=== PATIENT | male | born 1965 | race African-American/Black ===

== ENCOUNTER 2017-08-22 11:03 | Emergency (ER) | payer MEDICAID, SELFPAY ==
[~2017-08-22] VITALS: Ht 182.9 cm; Wt 81.6 kg
[2017-08-22 13:23] VITALS: BP 129/82
[2017-08-22 13:45] VITALS: BP 129/82
--- NOTE | 2017-08-28 01:05 | Emergency Room Report ---
History of Present Illness General Chief Complaint: Alcohol Intoxication Source: Patient, EMS Present Illness HPI Patient was brought in by paramedics questionably inebriated in the street Initially patient was somewhat groggy and sleepy After further observation patient reports that he had drank more than usual alcohol Denies any headache denies any chest pain Patient was oriented and speaking clearly Denies any fall or trauma and was requesting to go home Allergies: Coded Allergies: No Known Allergies (Unverified , 08/22/17) Patient History Past Medical History: see triage record Pertinent Family History: none Reviewed Nursing Documentation: PMH: Agreed, PSxH: Agreed Nursing Documentation-PMH Past Medical History: No History, Except For Hx Hypertension: Yes Review of Systems All Other Systems: negative except mentioned in HPI Physical Exam Vital Signs Date Time Temp Pulse Resp B/P (MAP) Pulse Ox O2 Delivery O2 Flow Rate FiO2 08/22/17 11:00 98.4 74 14 126/77 100 Room Air Sp02 EP Interpretation: reviewed, normal General Appearance: no apparent distress - Initially somewhat slow to respond however after further observation patient has become more sober, oriented and speaking clearly, Head: normocephalic, atraumatic Eyes: bilateral eye PERRL, bilateral eye EOMI ENT: hearing grossly normal, normal pharynx, TMs + canals normal, uvula midline Neck: full range of motion, supple, no meningismus, no bony tend Respiratory: lungs clear, normal breath sounds, no rhonchi, no respiratory distress, no retraction, no accessory muscle use Cardiovascular #1: normal peripheral pulses, regular rate, rhythm, no edema, no gallop, no JVD, no murmur Gastrointestinal: normal bowel sounds, non tender, soft, no mass, no organomegaly, non-distended, no guarding, no hernia, no pulsatile mass, no rebound Musculoskeletal: normal inspection Neurologic: oriented x3, responsive, fundraising consultant III-XII nml as tested, motor strength/ tone normal, sensory intact Psychiatric: mood/affect normal Skin: normal color, no rash, warm/dry, palpation normal Lymphatic: normal inspection, no adenopathy Medical Decision Making Diagnostic Impression: Primary Impression: alcohol abuse ER Course After observation and sobering Patient is awake and alert speaking clearly ambulating appropriately does report to drinking alcohol earlier And at this time requesting to go. given the benign neurological exam Patient appears stable for close followup Last Vital Signs Date Time Temp Pulse Resp B/P (MAP) Pulse Ox O2 Delivery O2 Flow Rate FiO2 08/22/17 13:45 98.4 97 16 129/82 100 Room Air Status: improved Disposition: HOME, SELF-CARE Condition: Improved Referrals: [facility],REFERRING (PCP) Patient Instructions: Alcohol Use Disorder Additional Instructions: Patient is provided with the discharge instructions notified to follow up with primary doctor in the next 2-3 days otherwise return to the er with any worsening symptoms. Please note that this report is being documented using [employer] technology. This can lead to erroneous entry secondary to incorrect interpretation by the dictating instrument. MARILEE BOOTHE D.O. Aug 28, 2017 01:05
== END 2017-08-22 13:45 | disposition home or self-care (01) ==
LOC: EDBD 11:03 → EMR 11:40
DX: F10.10 Alcohol abuse, uncomplicated (principal); I10 Essential (primary) hypertension
CPT/HCPCS: 99283

== ENCOUNTER 2018-03-26 22:23 | Inpatient (IN) | payer MEDICAID ==
[~2018-03-26] VITALS: Ht 190.5 cm; Wt 110.2 kg
--- NOTE | 2018-03-26 22:37 | Emergency Room Report ---
History of Present Illness General Chief Complaint: Generalized Weakness Source: Patient, Medical Record, EMS Present Illness HPI This is a 52-year-old male with a history of alcohol abuse in the past. He denies having problem with alcohol. He presents with generalized weakness. Onset for 1 day. He also has abdominal pain has been going on for years. No fever chills but no nausea no vomiting. He felt shaky and weak. Increasing falling. 3 days ago, fell and hit his face on the floor. No loss of consciousness. Did not come in to be seen. Patient is a poor historian. Allergies: Coded Allergies: No Known Allergies (Unverified , 08/22/17) Patient History Past Medical History: see triage record, old chart reviewed Past Surgical History: other Pertinent Family History: none Social History: Reports: alcohol use Immunizations: other Reviewed Nursing Documentation: PMH: Agreed; PSxH: Agreed Nursing Documentation-PMH Hx Cardiac Problems: Yes - ENLARGED HEART Hx Hypertension: Yes Review of Systems Constitutional: Reports: weakness Eye: Denies: eye pain, blurred vision ENT: Denies: ear pain, nose congestion, throat swelling Respiratory: Denies: cough, shortness of breath Cardiovascular: Denies: chest pain, palpitations Gastrointestinal: Reports: abdominal pain; Denies: diarrhea, nausea, vomiting Musculoskeletal: Denies: back pain, joint pain Skin: Denies: rash Neurological: Denies: headache, numbness Endocrine: Denies: increased thirst, increased urine Hematologic/Lymphatic: Denies: easy bruising All Other Systems: negative except mentioned in HPI Physical Exam Vital Signs Date Time Temp Pulse Resp B/P (MAP) Pulse Ox O2 Delivery O2 Flow Rate FiO2 03/26/18 22:18 99.2 127 18 122/72 94 Room Air 99.1 vitals with tachycardia Sp02 EP Interpretation: reviewed, normal General Appearance: well appearing, no apparent distress, alert Head: normocephalic, atraumatic Eyes: left eye other - Left eye with periorbital ecchymosis and subconjunctival hemorrhage; bilateral eye PERRL, bilateral eye EOMI ENT: hearing grossly normal, normal pharynx, other - edema to left face Neck: full range of motion, supple, no meningismus Respiratory: chest non-tender, lungs clear, normal breath sounds Cardiovascular #1: regular rate, rhythm, no murmur Gastrointestinal: normal bowel sounds, non tender, no mass, no organomegaly, no bruit, non-distended Musculoskeletal: back normal, normal range of motion Neurologic: alert, oriented x3, other - left facial droop not involving forehead Psychiatric: mood/affect normal Skin: warm/dry Procedures Critical Care Time Critical Care Time Critical care is mandated in this patient who presented with weakness secondary to anemia, probably from upper GI bleed from alcoholic gastritis. he also showed evidence of alcohol withdrawal syndrome. Patient require my urgent intervention to attenuate the risks of metabolic collapse which may lead to cardiovascular collapse and . Critical care time is 35 minutes excluding any reportable procedure. Critical care time included evaluation, multiple reevaluation, looking at old charts, interpreting laboratory and diagnostic data , discussing case with patient and family and consultants, and charting. Medical Decision Making Diagnostic Impression: Primary Impression: Alcohol withdrawal Qualified Codes: F10.230 - Alcohol dependence with withdrawal, uncomplicated Additional Impressions: Anemia Qualified Codes: D64.9 - Anemia, unspecified GI bleed Qualified Codes: K92.2 - Gastrointestinal hemorrhage, unspecified Orbital wall fracture Qualified Codes: S02.80XA - Fracture of other specified skull and facial bones , unspecified side, initial encounter for closed fracture Orbital floor fracture Qualified Codes: S02.32XA - Fracture of orbital floor, left side, initial encounter for closed fracture NERIS (acute kidney injury) Alcohol abuse ER Course Patient presents with weakness and tremulous. His weakness is probably secondary to poor nutrition and alcohol abuse. With the low hemoglobin I suspect that he has an upper GI bleed from alcoholics gastritis. When I ask him if his stool been dark he said yes. No evidence of acute bleeding. No evidence of perforation. Blood transfusion ordered. No evidence of CVA. He does have an oral wall fracture resulting in swelling of his left side of his face. No evidence of subarachnoid or intracranial bleed. Vital signs have been stable. Patient is stable for transfer. I spoke with Dr. Echeverria at [facility]. He accepted the patient for transfer to [facility]. Laboratory Tests Test 03/26/18 22:40 White Blood Count 16.8 K/UL (4.8-10.8) H Red Blood Count 2.66 M/UL (4.70-6.10) L Hemoglobin 6.6 G/DL (14.2-18.0) *L Hematocrit 21.8 % (42.0-52.0) L Mean Corpuscular Volume 82 FL (80-99) Mean Corpuscular Hemoglobin 24.7 PG (27.0-31.0) L Mean Corpuscular Hemoglobin Concent 30.2 G/DL (32.0-36.0) L Red Cell Distribution Width 20.2 % (11.6-14.8) H Platelet Count 168 K/UL (150-450) Mean Platelet Volume 8.4 FL (6.5-10.1) Neutrophils (%) (Auto) % (45.0-75.0) Lymphocytes (%) (Auto) % (20.0-45.0) Monocytes (%) (Auto) % (1.0-10.0) Eosinophils (%) (Auto) % (0.0-3.0) Basophils (%) (Auto) % (0.0-2.0) Neutrophils % (Manual) Pending Lymphocytes % (Manual) Pending Platelet Estimate Pending Platelet Morphology Pending Prothrombin Time 10.7 SEC (9.30-11.50) Prothromb Time International Ratio 1.0 (0.9-1.1) Activated Partial Thromboplast Time 21 SEC (23-33) L Sodium Level 137 MMOL/L (136-145) Potassium Level 3.0 MMOL/L (3.5-5.1) L Chloride Level 95 MMOL/L (98-107) L Carbon Dioxide Level 28 MMOL/L (21-32) Anion Gap 14 mmol/L (5-15) Blood Urea Nitrogen 21 mg/dL (7-18) H Creatinine 2.6 MG/DL (0.55-1.30) H Estimat Glomerular Filtration Rate 31.4 mL/min (>60) Glucose Level 134 MG/DL (74-106) H Calcium Level 8.5 MG/DL (8.5-10.1) Total Bilirubin 0.6 MG/DL (0.2-1.0) Aspartate Amino Transf (AST/SGOT) 73 U/L (15-37) H Alanine Aminotransferase (ALT/SGPT) 50 U/L (12-78) Alkaline Phosphatase 55 U/L (46-116) Troponin I 0.000 ng/mL (0.000-0.056) Total Protein 8.5 G/DL (6.4-8.2) H Albumin 3.9 G/DL (3.4-5.0) Globulin 4.6 g/dL Albumin/Globulin Ratio 0.8 (1.0-2.7) L Serum Alcohol 5 mg/dL Lab Results Impression labs with anemia and renal failure EKG Diagnostic Results Rate: tachycardiac Rhythm: NSR ST Segments: no acute changes Rhythm Strip Diag. Results Rhythm Strip Time: 23:20 EP Interpretation: yes Rate: 110 Rhythm: NSR, no PVC's, no ectopy Chest X-Ray Diagnostic Results Chest X-Ray Diagnostic Results : Chest X-Ray Ordered: Yes # of Views/Limited/Complete: 1 View Indication: Shortness of Breath EP Interpretation: Yes Interpretation: no consolidation, no effusion, no pneumothorax, no acute cardiopulmonary disease Impression: No acute disease Electronically Signed by: Anselmo Langley MD CT/MRI/US Diagnostic Results CT/MRI/US Diagnostic Results #1: Imaging Test Ordered: CT head Impression read by radiologist. Atrophy. CT/MRI/US Diagnostic Results #2: Imaging Test Ordered: CT facial bones Impression Read by radiologist. Soft tissue edema in the left periorbital region. Fracture of the floor of the left orbit. Fracture of the medial wall of the left orbit. Last Vital Signs Date Time Temp Pulse Resp B/P (MAP) Pulse Ox O2 Delivery O2 Flow Rate FiO2 03/26/18 22:18 99.2 127 18 122/72 94 Room Air 99.1 Status: improved Disposition: XFER SHT-TRM HOSP Condition: Stable ANSELMO LANGLEY M.D. Mar 26, 2018 22:37
[2018-03-26] MEDS ORDERED: LORazepam Inj 2mg/ml 1ml IV ONE (22:45)
[2018-03-26 23:22] LABS: HEMATOCRIT 21.8 % (42.0-52.0); MEAN CORPUSCULAR VOLUME 82 FL (80-99); PLATELET COUNT 168 K/UL (150-450); RED BLOOD COUNT 2.66 M/UL (4.70-6.10); RED CELL DISTRIBUTION WIDTH 20.2 % (11.6-14.8); WHITE BLOOD COUNT 16.8 K/UL (4.8-10.8)
[2018-03-26 23:31] LABS: ANION GAP 14 mmol/L (5-15); BLOOD UREA NITROGEN 21 mg/dL (7-18); CALCIUM 8.5 MG/DL (8.5-10.1); CARBON DIOXIDE 28 MMOL/L (21-32); CHLORIDE 95 MMOL/L (98-107); CREATININE 2.6 MG/DL (0.55-1.30); SODIUM 137 MMOL/L (136-145)
[2018-03-26 23:35] LABS: HEMOGLOBIN 6.6 G/DL (14.2-18.0)
[2018-03-26 23:36] LABS: ALANINE AMINOTRANSFERASE 50 U/L (12-78); ALBUMIN 3.9 G/DL (3.4-5.0); ALBUMIN/GLOBULIN RATIO 0.8 (1.0-2.7); ALKALINE PHOSPHATASE 55 U/L (46-116); ASPARTATE AMINO TRANSFERASE 73 U/L (15-37); BILIRUBIN,TOTAL 0.6 MG/DL (0.2-1.0)
[2018-03-27] VITALS (10 sets, daily range): BP systolic 132–156; BP diastolic 72–98
[2018-03-27] MEDS ORDERED: Pantoprazole Inj IVP ONE
[2018-03-27] MEDS ORDERED: LORazepam 1mg tab ORAL PRN (05:00)
[2018-03-27] MEDS: D5NS 1,000 ML IV SCH ×2 (06:00→16:30)
[2018-03-27] MEDS ORDERED: Thiamine 100mg tab ORAL SCH (09:00)
[2018-03-27 09:41] LABS: HEMATOCRIT 23.6 % (42.0-52.0); HEMOGLOBIN 7.4 G/DL (14.2-18.0); MEAN CORPUSCULAR VOLUME 83 FL (80-99); PLATELET COUNT 144 K/UL (150-450); RED BLOOD COUNT 2.86 M/UL (4.70-6.10); RED CELL DISTRIBUTION WIDTH 18.5 % (11.6-14.8); WHITE BLOOD COUNT 10.8 K/UL (4.8-10.8)
[2018-03-27 09:46] LABS: ANION GAP 14 mmol/L (5-15); BLOOD UREA NITROGEN 19 mg/dL (7-18); CALCIUM 7.7 MG/DL (8.5-10.1); CARBON DIOXIDE 28 MMOL/L (21-32); CHLORIDE 96 MMOL/L (98-107); CREATININE 1.2 MG/DL (0.55-1.30); POTASSIUM 3.1 MMOL/L (3.5-5.1); SODIUM 137 MMOL/L (136-145)
--- NOTE | 2018-03-27 09:54 | Anethesia Preoperative Eval ---
Anesthesia Pre-op PMH/ROS General Date of Evaluation: Mar 27, 2018 Anesthesiologist: Clive ASA Score: ASA 3 Mallampati Score Class I : Soft palate, uvula, fauces, pillars visible Class II: Soft palate, uvula, fauces visible Class III: Soft palate, base of uvula visible Class IV: Only hard plate visible Mallampati Classification: Class III Surgeon: Michael Diagnosis: GI bleed Surgical Procedure: EGD Anesthesia History: none Social History: alcohol use - abuse Family History: no anesthesia problems Allergies: Coded Allergies: No Known Allergies (Unverified , 08/22/17) Medications: see eMAR Past Medical History Cardiovascular: Reports: HTN, other - CHF, cardiomegaly; Denies: CAD, DE, valve dz, arrhythmia Pulmonary: Denies: asthma, COPD, FIDE, other Gastrointestinal/Genitourinary: Reports: GERD, other - ? cirrhosis; Denies: CRI, ESRD Neurologic/Psychiatric: Denies: dementia, CVA, depression/anxiety, TIA, other Endocrine: Denies: DM, hypothyroidism, steroids, other HEENT: Denies: cataract (L), cataract (R), glaucoma, SQUAXIN (L), SQUAXIN (R), other Hematology/Immune: Reports: anemia; Denies: DVT, bleeding disorder, other Musculoskeletal/Integumentary: Reports: other - orbital fx; Denies: OA, RA, DJD, DDD, edema Other: obesity PSxH Narrative: denies Anesthesia Pre-op Phys. Exam Physician Exam Last Vital Signs Date Time Temp Pulse Resp B/P (MAP) Pulse Ox O2 Delivery O2 Flow Rate FiO2 03/27/18 08:00 99.2 83 17 146/85 98 Room Air 99.2 Constitutional: NAD, other - Swollen left orbit Cardiovascular: RRR Respiratory: CTA Airway Exam Mallampati Score: Class III MO: limited ROM: limited Anesthesia Pre-op A/P Labs Hematology Test 03/26/18 22:40 03/27/18 09:10 White Blood Count 16.8 K/UL (4.8-10.8) H 10.8 K/UL (4.8-10.8) Red Blood Count 2.66 M/UL (4.70-6.10) L 2.86 M/UL (4.70-6.10) L Hemoglobin 6.6 G/DL (14.2-18.0) *L 7.4 G/DL (14.2-18.0) L Hematocrit 21.8 % (42.0-52.0) L 23.6 % (42.0-52.0) L Mean Corpuscular Volume 82 FL (80-99) 83 FL (80-99) Mean Corpuscular Hemoglobin 24.7 PG (27.0-31.0) L 25.9 PG (27.0-31.0) L Mean Corpuscular Hemoglobin Concent 30.2 G/DL (32.0-36.0) L 31.2 G/DL (32.0-36.0) L Red Cell Distribution Width 20.2 % (11.6-14.8) H 18.5 % (11.6-14.8) H Platelet Count 168 K/UL (150-450) 144 K/UL (150-450) L Mean Platelet Volume 8.4 FL (6.5-10.1) 8.0 FL (6.5-10.1) Neutrophils (%) (Auto) % (45.0-75.0) % (45.0-75.0) Lymphocytes (%) (Auto) % (20.0-45.0) % (20.0-45.0) Monocytes (%) (Auto) % (1.0-10.0) % (1.0-10.0) Eosinophils (%) (Auto) % (0.0-3.0) % (0.0-3.0) Basophils (%) (Auto) % (0.0-2.0) % (0.0-2.0) Differential Total Cells Counted 100 Neutrophils % (Manual) 80 % (45-75) H Pending Lymphocytes % (Manual) 8 % (20-45) L Pending Monocytes % (Manual) 12 % (1-10) H Eosinophils % (Manual) 0 % (0-3) Basophils % (Manual) 0 % (0-2) Band Neutrophils 0 % (0-8) Platelet Estimate Adequate Pending Platelet Morphology Pending Giant Platelets Stomatocytes 3+ Coagulation Test 03/26/18 22:40 Prothrombin Time 10.7 SEC (9.30-11.50) Prothromb Time International Ratio 1.0 (0.9-1.1) Activated Partial Thromboplast Time 21 SEC (23-33) L Chemistry Test 03/26/18 22:40 03/27/18 09:10 Sodium Level 137 MMOL/L (136-145) Pending Potassium Level 3.0 MMOL/L (3.5-5.1) L Pending Chloride Level 95 MMOL/L (98-107) L Pending Carbon Dioxide Level 28 MMOL/L (21-32) Pending Anion Gap 14 mmol/L (5-15) Blood Urea Nitrogen 21 mg/dL (7-18) H Pending Creatinine 2.6 MG/DL (0.55-1.30) H Pending Estimat Glomerular Filtration Rate 31.4 mL/min (>60) Pending Glucose Level 134 MG/DL (74-106) H Pending Calcium Level 8.5 MG/DL (8.5-10.1) Pending Total Bilirubin 0.6 MG/DL (0.2-1.0) Aspartate Amino Transf (AST/SGOT) 73 U/L (15-37) H Alanine Aminotransferase (ALT/SGPT) 50 U/L (12-78) Alkaline Phosphatase 55 U/L (46-116) Troponin I 0.000 ng/mL (0.000-0.056) Total Protein 8.5 G/DL (6.4-8.2) H Albumin 3.9 G/DL (3.4-5.0) Globulin 4.6 g/dL Albumin/Globulin Ratio 0.8 (1.0-2.7) L Studies Pre-op Studies: EKG - ST Risk Assessment & Plan Assessment: ASA III Plan: MAC Status Change Before Surgery: No Pre-Antibiotics Drug: N/A JOÃO WARNER M.D. Mar 27, 2018 09:54
--- NOTE | 2018-03-27 09:56 | GI Initial Consult Note ---
History of Present Illness General Date patient seen: Mar 27, 2018 Time patient seen: 09:52 Reason for Hospitalization: Generalized Weakness Referring physician: DODSON Reason for Consultation: ANEMIA Present Illness HPI This is a 52-year-old male with a history of alcohol abuse in the past. He denies having problem with alcohol. He presents with generalized weakness. Onset for 1 day. He also has abdominal pain has been going on for years. No fever chills but no nausea no vomiting. He felt shaky and weak. Increasing falling. 3 days ago, fell and hit his face on the floor. No loss of consciousness. Did not come in to be seen. Patient is a poor historian. GI consulted for anemia. Pt seen, awake A&Ox4 NAD with no active s/sx of N/V/D , noted with some tremors. Pt states he has history of heavy drinking, contributes it to the recent loss of his family members. Stated he had episodes of dark red blood emesis. No history of endoscopy/colonoscopy. Presents today with leukocytosis and severe anemia requiring blood transfusion. Allergies: Coded Allergies: No Known Allergies (Unverified , 08/22/17) Patient History PMH Narrative Past Medical History: see triage record, old chart reviewed Past Surgical History: other Pertinent Family History: none Social History: Reports: alcohol use Immunizations: other Reviewed Nursing Documentation: PMH: Agreed; PSxH: Agreed Nursing Documentation-PMH Hx Cardiac Problems: Yes - ENLARGED HEART Hx Hypertension: Yes Social History: Reports: alcohol use Review of Systems All Other Systems: negative except mentioned in HPI Physical Exam Vital Signs Date Time Temp Pulse Resp B/P (MAP) Pulse Ox O2 Delivery O2 Flow Rate FiO2 03/26/18 22:18 99.2 127 18 122/72 94 Room Air 99.1 Sp02 EP Interpretation: reviewed, normal Labs Laboratory Tests Test 03/26/18 22:40 03/27/18 09:09 03/27/18 09:10 White Blood Count 16.8 K/UL (4.8-10.8) H 10.8 K/UL (4.8-10.8) Red Blood Count 2.66 M/UL (4.70-6.10) L 2.86 M/UL (4.70-6.10) L Hemoglobin 6.6 G/DL (14.2-18.0) *L 7.4 G/DL (14.2-18.0) L Hematocrit 21.8 % (42.0-52.0) L 23.6 % (42.0-52.0) L Mean Corpuscular Volume 82 FL (80-99) 83 FL (80-99) Mean Corpuscular Hemoglobin 24.7 PG (27.0-31.0) L 25.9 PG (27.0-31.0) L Mean Corpuscular Hemoglobin Concent 30.2 G/DL (32.0-36.0) L 31.2 G/DL (32.0-36.0) L Red Cell Distribution Width 20.2 % (11.6-14.8) H 18.5 % (11.6-14.8) H Platelet Count 168 K/UL (150-450) 144 K/UL (150-450) L Mean Platelet Volume 8.4 FL (6.5-10.1) 8.0 FL (6.5-10.1) Neutrophils (%) (Auto) % (45.0-75.0) % (45.0-75.0) Lymphocytes (%) (Auto) % (20.0-45.0) % (20.0-45.0) Monocytes (%) (Auto) % (1.0-10.0) % (1.0-10.0) Eosinophils (%) (Auto) % (0.0-3.0) % (0.0-3.0) Basophils (%) (Auto) % (0.0-2.0) % (0.0-2.0) Differential Total Cells Counted 100 Neutrophils % (Manual) 80 % (45-75) H Pending Lymphocytes % (Manual) 8 % (20-45) L Pending Monocytes % (Manual) 12 % (1-10) H Eosinophils % (Manual) 0 % (0-3) Basophils % (Manual) 0 % (0-2) Band Neutrophils 0 % (0-8) Platelet Estimate Adequate Pending Platelet Morphology Pending Giant Platelets Stomatocytes 3+ Prothrombin Time 10.7 SEC (9.30-11.50) Prothromb Time International Ratio 1.0 (0.9-1.1) Activated Partial Thromboplast Time 21 SEC (23-33) L Sodium Level 137 MMOL/L (136-145) Pending Potassium Level 3.0 MMOL/L (3.5-5.1) L Pending Chloride Level 95 MMOL/L (98-107) L Pending Carbon Dioxide Level 28 MMOL/L (21-32) Pending Anion Gap 14 mmol/L (5-15) Blood Urea Nitrogen 21 mg/dL (7-18) H Pending Creatinine 2.6 MG/DL (0.55-1.30) H Pending Estimat Glomerular Filtration Rate 31.4 mL/min (>60) Pending Glucose Level 134 MG/DL (74-106) H Pending Calcium Level 8.5 MG/DL (8.5-10.1) Pending Total Bilirubin 0.6 MG/DL (0.2-1.0) Aspartate Amino Transf (AST/SGOT) 73 U/L (15-37) H Alanine Aminotransferase (ALT/SGPT) 50 U/L (12-78) Alkaline Phosphatase 55 U/L (46-116) Troponin I 0.000 ng/mL (0.000-0.056) Total Protein 8.5 G/DL (6.4-8.2) H Albumin 3.9 G/DL (3.4-5.0) Globulin 4.6 g/dL Albumin/Globulin Ratio 0.8 (1.0-2.7) L Serum Alcohol 5 mg/dL Urine Opiates Screen Pending Urine Barbiturates Screen Pending Phencyclidine (PCP) Screen Pending Urine Amphetamines Screen Pending Urine Benzodiazepines Screen Pending Urine Cocaine Screen Pending Urine Marijuana (THC) Screen Pending General Appearance: well appearing, no apparent distress, alert Head: normocephalic EENT: PERRL/EOMI, normal ENT inspection Neck: supple Respiratory: normal breath sounds, no respiratory distress Cardiovascular: normal rate Gastrointestinal: normal inspection, non tender, soft, normal bowel sounds, non -distended Rectal: deferred Genitourinary: deferred Musculoskeletal: normal inspection, back normal Neurologic: normal inspection, alert, oriented x3, responsive Psychiatric: normal inspection, judgement/insight normal, memory normal Skin: normal inspection, normal color, no rash, warm/dry, palpation normal, well hydrated Lymphatic: normal inspection, no adenopathy Current Medications Current Medications Medications (Trade) Dose Ordered Sig/Zenobia Route PRN Reason Start Time Stop Time Status Last Admin Dose Admin Amlodipine Besylate (Norvasc) 10 mg DAILY ORAL 03/27/18 10:00 04/26/18 09:59 Clonidine HCl (Catapres Tab) 0.1 mg Q6H PRN ORAL SBP >155 03/27/18 10:00 04/26/18 09:59 Dextrose (Dextrose 50%) 25 ml STAT PRN IV Hypoglycemia 03/27/18 05:00 04/26/18 04:59 Dextrose (Dextrose 50%) 50 ml STAT PRN IV Hypoglycemia 03/27/18 05:00 04/26/18 04:59 Dextrose/Sodium Chloride 1,000 ml @ 100 mls/hr Q10H IV 03/27/18 06:00 04/26/18 05:59 03/27/18 06:00 Folic Acid (Folate) 1 mg DAILY ORAL 03/27/18 09:00 04/26/18 08:59 03/27/18 09:05 Lorazepam (Ativan) 1 mg Q4H PRN ORAL For Anxiety 03/27/18 05:00 04/03/18 04:59 Morphine Sulfate (Morphine Sulfate) 1 mg Q4H PRN IVP For Pain 03/27/18 10:00 04/03/18 09:59 Ondansetron HCl (Zofran) 4 mg Q6H PRN IVP Nausea & Vomiting 03/27/18 05:00 04/26/18 04:59 Thiamine HCl (Vitamin B1) 100 mg DAILY ORAL 03/27/18 09:00 04/26/18 08:59 03/27/18 09:05 GI: Plan Problems: (1) GI bleed (2) Alcohol withdrawal (3) Anemia (4) Alcohol abuse (5) Acute alcoholic intoxication Plan s/p blood transfusion EGD today >> maintain NPO + IVFs will adv diet after surgery MVI/folate ativan prn pain mgmt will follow with additional recs Discussed with Dr. Rodriguez. Thank you for this patient referral, we will follow. The patient was seen and examined at bedside and all new and available data was reviewed in the patients chart. I agree with the above findings, impression and plan. (Patient seen earlier today. Signature stamp does not reflect patient encounter time.). - MD Korin Sweet,[facility] [employer] Mar 27, 2018 09:56
--- NOTE | 2018-03-27 09:59 | Diagnostic Imaging Report ---
Indications: Head trauma approximately 5 hours ago, it orbit Technique: Spiral acquisitions obtained through the brain. Angled axial and coronal 5 x 5 mm slices were reconstructed. Total dose length product 1288.11 mGycm. CTDI vol(s) 70.38 mGy. Dose reduction achieved using automated exposure control Comparison: None. Findings: No acute intracranial hemorrhage or edema, mass effect, nor midline shift. There is mild anterior convexity cortical volume loss. Normal size ventricles and extra axial CSF spaces. Normal daugherty-white differentiation. Intact calvarium. There is ethmoid sinus disease on the left, maxillary sinus disease on the right. The mastoids are clear. Impression: Negative for acute intracranial bleed or mass effect Age-related cerebral cortical volume loss This agrees with the preliminary interpretation provided overnight by [facility] teleradiology service. The CT scanner at [facility] is accredited by the [employer] and the scans are performed using protocols designed to limit radiation exposure to as low as reasonably achievable to attain images of sufficient resolution adequate for diagnostic evaluation.
[2018-03-27] MEDS ORDERED: Morphine Sulfate 2mg/ml Inj IVP PRN (10:00)
[2018-03-27] MEDS ORDERED: ANTIFUNGAL30 G2 (10:43)
[2018-03-27] MEDS ORDERED: DICLOFENAC SODI75 MG PO (10:43)
[2018-03-27] MEDS ORDERED: VITAMIN D250000 UNI1 PO (10:43)
[2018-03-27] MEDS ORDERED: GABAPENTIN600 MG PO (10:43)
--- NOTE | 2018-03-27 12:14 | Diagnostic Imaging Report ---
Indication: Shortness of breath Technique: One view of the chest Comparison: none Findings: Lungs and pleural spaces are clear. Heart size is normal Impression: No acute process
--- NOTE | 2018-03-27 12:17 | Diagnostic Imaging Report ---
Indications: Trauma, fell proximally 5 hours ago, hit left orbit Technique: Spiral images obtained through the facial bones. No IV contrast utilized. Multiplanar reconstructions were generated.Total dose length product 651.23 mGycm. CTDIvol(s) 28.19 mGy. Dose reduction achieved using automated exposure control Comparison: none Findings: There is a fracture of the left orbital floor, which is depressed by about 4 mm. No susana herniation of orbital contents demonstrated. Fracture also extends into the medial orbital wall, which is slightly markedly depressed. There is a small air-fluid level within the left maxillary sinus. There is opacification of left ethmoid air cells. There is left periorbital soft tissue swelling/contusion in left malar soft tissue swelling/contusion There is also chronic appearing maxillary mucosal disease bilaterally. The optic globes are intact. Impression: Positive for left inferior orbital floor fracture, depressed by 4 mm. No evidence of herniation of orbital contents Positive for depressed medial orbital wall fracture Sinus opacification, in part related to the above, in part chronic Left periorbital soft tissue contusion Intact optic globe This agrees with the preliminary interpretation provided overnight by [facility]erad[facility] service. The CT scanner at [facility] is accredited by the [employer] and the scans are performed using protocols designed to limit radiation exposure to as low as reasonably achievable to attain images of sufficient resolution adequate for diagnostic evaluation.
[2018-03-27] MEDS ORDERED: DICLOFENAC SODI50 MG ORAL (12:33)
[2018-03-27] MEDS ORDERED: BACITRACIN15 GM TOPIC (12:43)
[2018-03-27] MEDS ORDERED: ADALAT20 MG ORAL (12:43)
[2018-03-27] MEDS ORDERED: VITAMIN D250000 UNI1 ORAL (12:43)
[2018-03-27] MEDS ORDERED: NYSTATIN15 GM TOPIC (12:43)
[2018-03-27] MEDS ORDERED: FERROUS SULFAT325 M2 ORAL (12:43)
[2018-03-27] MEDS ORDERED: K-TAB ER20 MEQ PO (12:43)
[2018-03-27] MEDS ORDERED: FUROSEMIDE20 M1 ORAL (12:43)
[2018-03-27] MEDS ORDERED: GABAPENTIN600 MG ORAL (12:43)
[2018-03-27] MEDS ORDERED: Lidocaine 1% MPF 10mg/ml 5ml ONE (13:00)
[2018-03-27] MEDS ORDERED: Propofol 200mg/20ml IV ONE (13:00)
[2018-03-27] MEDS ORDERED: Midazolam 2mg/2ml Inj ONE ×2 (13:00→13:22)
[2018-03-27] MEDS ORDERED: LR 1000ml ONE (13:00)
--- NOTE | 2018-03-27 13:04 | Pre-Procedure Note/Attestation ---
Pre-Procedure Note/Attestation Complete Prior to Procedure Planned Procedure: not applicable Procedure Narrative: egd Indications for Procedure Pre-Operative Diagnosis: gib Attestation I attest that I discussed the nature of the procedure; its benefits; risks and complications; and alternatives (and the risks and benefits of such alternatives ), prior to the procedure, with the patient (or the patient's legal canvas products sales representative). I attest that, if there was a reasonable possibility of needing a blood transfusion, the patient (or the patient's legal [employer] products sales representative) was given the [facility] standardized written summary, pursuant to the Efraín Gwendolyn Blood Safety Act ([place] Health and Safety Code # 1645, as amended). I attest that I re-evaluated the patient just prior to the surgery and that there has been no change in the patient's H&P, except as documented below: Joshua Rodriguez MD Mar 27, 2018 13:04
[2018-03-27] MEDS ORDERED: NS 500ML IVPB ONE (13:05)
--- NOTE | 2018-03-27 13:17 | Endoscopy Procedure Note ---
Endoscopy Procedure Note General Indication for Procedure: gib Procedures Performed: EGD Operative Findings/Diagnosis: gastritis Specimen: yes Pt Tolerated Procedure Well: Yes Estimated Blood Loss: none Anesthesia Anesthesiologist: josse Anesthesia: MAC Inserted Devices Implant(s) used?: No GI Core Measures 50 yrs or older w/o bx or poly: Not Applicable 10yrs. F/U not recommended: Not Applicable Joshua Rodriguez MD Mar 27, 2018 13:17
--- NOTE | 2018-03-27 13:27 | Immediate Post-Op Evaluation ---
Immediate Post-Op Evalulation Immediate Post-Op Evalulation Procedure: EGD Date of Evaluation: Mar 27, 2018 Time of Evaluation: 13:29 IV Fluids: 300 Blood Products: 0 Estimated Blood Loss: 0 Urinary Output: 0 Blood Pressure Systolic: 138 Blood Pressure Diastolic: 82 Pulse Rate: 100 Respiratory Rate: 17 O2 Sat by Pulse Oximetry: 100 Temperature (Fahrenheit): 99.1 Pain Score (1-10): 0 Nausea: No Vomiting: No Complications 0 Patient Status: awake, reacts, patent, none Hydration Status: adequate Drug: N/A JOÃO WARNER M.D. Mar 27, 2018 13:27
--- NOTE | 2018-03-27 13:28 | 48 Hour Post Anesthesia Eval ---
Post Anesthesia Evaluation Procedure: EGD Date of Evaluation: Mar 27, 2018 Airway: patent Nausea: No Vomiting: No Pain Intensity: 0 Hydration Status: adequate Cardiopulmonary Status: at baseline Mental Status/LOC: patient returned to baseline Post-Anesthesia Complications: 0 Follow-up care needed: ready to discharge JOÃO WARNER M.D. Mar 27, 2018 13:28
[2018-03-27] MEDS ORDERED: LR 1000ml 1,000 ML IVLG SCH (13:29)
[2018-03-27] MEDS ORDERED: Midazolam 2mg/2ml Inj IVP PRN (13:30)
[2018-03-27] MEDS ORDERED: LORazepam Inj 2mg/ml 1ml IV PRN (13:30)
[2018-03-27] MEDS ORDERED: DiphenhydrAMINE 50mg/ml Inj IVP PRN (13:30)
--- NOTE | 2018-03-27 15:15 | General Progress Note ---
Assessment/Plan Status: stable Assessment/Plan 1. Orbital fracture-left eye with movement of eyes in all directions. Injury was March 16, 2018 per pt-he is not candidate for repair at this time- denies 2x vision or blurry vision.. may change with time as swelling goes down. Please reconsult PRN 2. Suggest ophthalmology to test vision. Subjective Date patient seen: Mar 27, 2018 Time patient seen: 15:00 ROS Limited/Unobtainable: Yes Constitutional: Reports: diaphoresis HEENT: Reports: other - left facial swelling around eye which was injured March 16, 2018. he dienies vision issues Cardiovascular: Reports: other - HTN Gastrointestinal/Abdominal: Reports: other - gastritis Neurologic/Psychiatric: Reports: anxiety, depressed, emotional problems, other - ETOH abuse Allergies: Coded Allergies: No Known Allergies (Unverified , 08/22/17) Subjective Left eye ecchmosis as described in ROR above. Objective Last 24 Hour Vital Signs Date Time Temp Pulse Resp B/P (MAP) Pulse Ox O2 Delivery O2 Flow Rate FiO2 03/27/18 13:45 99 104 17 132/72 100 Room Air 99.0 03/27/18 13:34 99 101 17 138/80 100 Room Air 99.0 03/27/18 13:29 99 100 17 138/84 100 Room Air 99.0 03/27/18 13:27 210.4 100 17 100 03/27/18 13:24 99 100 17 138/86 100 Simple Mask 5 99.0 03/27/18 12:00 98.6 89 18 150/84 97 Room Air 98.6 03/27/18 12:00 88 03/27/18 10:45 89 146/85 03/27/18 08:00 99.2 83 17 146/85 98 Room Air 99.2 03/27/18 08:00 89 03/27/18 06:09 99.3 90 142/89 96 99.3 03/27/18 04:27 98.9 97 20 144/92 99 Room Air 98.9 03/27/18 03:12 98.9 88 20 98.9 03/27/18 03:11 98.9 97 20 156/94 99 Room Air 98.9 03/27/18 00:00 98.9 98 20 142/98 99 Room Air 98.9 03/26/18 22:18 99.2 127 18 122/72 94 Room Air 99.1 Intake and Output 03/26/18 03/27/18 19:00 07:00 Intake Total 500 ml Output Total 300 ml Balance 200 ml Intake Oral 0 ml Blood Product 500 ml Output Urine Total 300 ml # Bowel Movements 1 Laboratory Tests 03/26/18 22:40: White Blood Count 16.8H, Red Blood Count 2.66L, Hemoglobin 6.6*L, Hematocrit 21.8L, Mean Corpuscular Volume 82, Mean Corpuscular Hemoglobin 24.7L, Mean Corpuscular Hemoglobin Concent 30.2L, Red Cell Distribution Width 20.2H, Platelet Count 168, Mean Platelet Volume 8.4, Neutrophils (%) (Auto) , Lymphocytes (%) (Auto) , Monocytes (%) (Auto) , Eosinophils (%) (Auto) , Basophils (%) (Auto) , Differential Total Cells Counted 100, Neutrophils % ( Manual) 80H, Lymphocytes % (Manual) 8L, Monocytes % (Manual) 12H, Eosinophils % (Manual) 0, Basophils % (Manual) 0, Band Neutrophils 0, Platelet Estimate Adequate, Platelet Morphology , Giant Platelets , Stomatocytes 3+, Prothrombin Time 10.7, Prothromb Time International Ratio 1.0, Activated Partial Thromboplast Time 21L, Sodium Level 137, Potassium Level 3.0L, Chloride Level 95L, Carbon Dioxide Level 28, Anion Gap 14, Blood Urea Nitrogen 21H, Creatinine 2.6H, Estimat Glomerular Filtration Rate 31.4, Glucose Level 134H, Calcium Level 8.5, Total Bilirubin 0.6, Aspartate Amino Transf (AST/SGOT) 73H, Alanine Aminotransferase (ALT/SGPT) 50, Alkaline Phosphatase 55, Troponin I 0.000, Total Protein 8.5H, Albumin 3.9, Globulin 4.6, Albumin/Globulin Ratio 0.8L, Serum Alcohol 5 03/27/18 09:09: Urine Opiates Screen Negative, Urine Barbiturates Screen Negative, Phencyclidine (PCP) Screen Negative, Urine Amphetamines Screen Negative, Urine Benzodiazepines Screen Negative, Urine Cocaine Screen Negative, Urine Marijuana (THC) Screen Negative 03/27/18 09:10: White Blood Count 10.8, Red Blood Count 2.86L, Hemoglobin 7.4L, Hematocrit 23.6L , Mean Corpuscular Volume 83, Mean Corpuscular Hemoglobin 25.9L, Mean Corpuscular Hemoglobin Concent 31.2L, Red Cell Distribution Width 18.5H, Platelet Count 144L, Mean Platelet Volume 8.0, Neutrophils (%) (Auto) , Lymphocytes (%) (Auto) , Monocytes (%) (Auto) , Eosinophils (%) (Auto) , Basophils (%) (Auto) , Differential Total Cells Counted 100, Neutrophils % ( Manual) 78H, Lymphocytes % (Manual) 14L, Monocytes % (Manual) 8, Eosinophils % ( Manual) 0, Basophils % (Manual) 0, Band Neutrophils 0, Platelet Estimate DecreasedL, Platelet Morphology Normal, Stomatocytes 1+, Sodium Level 137, Potassium Level 3.1L, Chloride Level 96L, Carbon Dioxide Level 28, Anion Gap 14 , Blood Urea Nitrogen 19H, Creatinine 1.2#, Estimat Glomerular Filtration Rate > 60, Glucose Level 99, Calcium Level 7.7L, Hypochromasia 1+, Anisocytosis 1+ Height (Feet): 6 Height (Inches): 3.00 Weight (Pounds): 243 General Appearance: confused, mild distress EENT: other - some swelling left periorbital area. EOMI and eyelids do close. Neck: non-tender Lymphatic: normal anterior cervical (L), normal anterior cervical (R), normal posterior cervical (L), normal posterior cervical (R), normal submandibular (L) , normal submandibular (R), normal supraclavicular (L), normal supraclavicular ( R) Objective Jez eye-periorbital swelling as described above. CT scan-let orbital floor fracture with periorbital edema KAYLA HARDY Mar 27, 2018 15:15
--- NOTE | 2018-03-27 16:30 | Procedure Note ---
DATE OF PROCEDURE: 03/27/2018 SURGEON: Joshua Rodriguez M.D. ANESTHESIA: Per Dr. Duffy. REFERRING PHYSICIAN: Get Mcdaniels M.D. PROCEDURE: Upper endoscopy with biopsy. INDICATION: Upper GI bleeding. The procedure, risks, benefits, and possible consequences, including hemorrhage, aspiration, perforation and infection, and alternative treatments, were explained to the patient/legal guardian by Dr. Joshua Rodriguez and the patient/legal guardian understood and accepted these risks. DESCRIPTION OF PROCEDURE: After informed consent was obtained and the patient was adequately sedated, Olympus upper endoscope was advanced from mouth into the second portion of the duodenum and retroflexion was performed in the stomach. The patient has evidence of distal esophagitis grade 1/II. No obvious active bleeding at this time. no gastric varices. In the stomach, there was diffuse gastritis. Random biopsy from antrum was obtained to rule out H. pylori infection. The patient tolerated the procedure very well without any complication. SUMMARY OF FINDINGS: 1. Gastritis. 2. Esophagitis. RECOMMENDATIONS: Follow up biopsies and treat accordingly. PPI daily. Reflux measures. Monitor for alcohol withdrawal. I want to thank Dr. De Jesus for this kind referral. Joshua Rodriguez M.D. DR: RENETTA JOB#: [id number] CC: Get Mcdaniels M.D.
--- NOTE | 2018-03-27 17:15 | History and Physical Report ---
DATE OF ADMISSION: 03/27/2018 REASON FOR ADMISSION: 1. GI bleed. 2. Anemia. 3. Status post fall with facial trauma. HISTORY OF PRESENT ILLNESS: The patient is a 52-year-old with polysubstance abuse consisting of dependency on alcohol and marijuana and pain medication. The patient drinks what he notes to be 3 to 4 drinks every day. On Friday, the patient was intoxicated, tripped and fell and hit the side of what seems to be a table or chairs. The patient's left eye started to swell immediately overnight into the next day. He did not present to the emergency room until early this morning at the persistence of his family. He does have a fracture of his orbital floor on the left side. The patient denies any nausea, vomiting, or diarrhea. He has been told in the past that his renal function is not normal. Complaining also of left-sided rib pain. PAST MEDICAL HISTORY: 1. Chronic kidney disease stage 3/4. 2. Hypertension. 3. Chronic pain. PAST SURGICAL HISTORY: Noncontributory. ALLERGIES: No known drug allergies. SOCIAL HISTORY: Positive for polysubstance abuse, alcohol and marijuana and narcotic pills. The patient denies illicit drug use. FAMILY HISTORY: Positive for hypertension. REVIEW OF SYSTEMS: NEUROLOGIC: The patient denies any current headaches. Some difficulty in vision through left side. Face is swollen. CARDIOVASCULAR: No current chest pain or palpitations. PULMONARY: No difficulty breathing. No cough or sputum. GASTROINTESTINAL/GENITOURINARY: No change in urinary or bowel habits. No nausea, vomiting or diarrhea. ENDOCRINOLOGY: No night sweats, fevers, or chills. PHYSICAL EXAMINATION: GENERAL: The patient awake, alert, in no other distress. VITAL SIGNS: Blood pressure 146/85, pulse 83, 98% room oxygen saturation, and temperature 99.2 degrees. HEENT: Extraocular muscles seemingly intact. Difficult to visualize left side, as his left-sided orbit is swollen. CARDIOVASCULAR: S1 and S2. No rubs or gallops. PULMONARY: Clear to auscultation bilaterally. No rales, rhonchi or wheezes. ABDOMEN: Nondistended and nontender. EXTREMITIES: No edema noted. LABORATORY AND DIAGNOSTIC DATA: Labs dated 03/26/2018, serum alcohol level of 5. Sodium 137, potassium 3, BUN 21, and creatinine 2.6. ALT and AST 50 and 73 respectively. Troponin 0. Hemoglobin 6.6, white cell count 16.8, and platelet count 168. ASSESSMENT AND PLAN: 1. Anemia. Hemoglobin 6.6. The patient was transfused in the emergency room. We will consult GI for further evaluation, management, most likely secondary to possible upper GI bleed. The patient does have heavy alcohol consumption, could have suppressed bone marrow from severe alcohol consumption. 2. Left orbital fracture. We will consult ENT for further evaluation and management. 3. CKD stage 4, creatinine 2.6. Continue IV hydration. We will monitor renal function carefully. Renal ultrasound to evaluate possibility of any underlying obstructive uropathy. 4. Hypokalemia. At this time, we will recheck stat laboratories. 5. DVT prophylaxis with heparin subcutaneous. 6. Alcohol dependency. The patient has been placed on thiamine and folate to avoid Wernicke's-Korsakoff's and also as p.r.n. Ativan. 7. Narcotic dependence. The patient is already requesting narcotics for generalized aches and pains. At this time, we will hold off any narcotics. We will need to do a stat drug screen. Get Mcdaniels MD DR: GALO JOB#: [id number] CC:
[2018-03-27] MEDS ORDERED: NS 275ml ONE (19:04)
[2018-03-27] MEDS ORDERED: Tubing IV Blood Pump IV ONE (19:04)
[2018-03-27] MEDS ORDERED: Pantoprazole Inj IVP SCH (21:00)
--- NOTE | 2018-03-28 12:14 | Cardiology Report ---
APPROVED REPORT EKG Measurement Heart [id number] Sinus tachycardia Left ventricular hypertrophy with repolarization abnormality Prolonged QT Abnormal ECG
--- NOTE | 2018-03-30 13:45 | Discharge Summary ---
Discharge Summary Discharge Summary _ DATE OF ADMISSION: 03/27/2018 DATE OF DISCHARGE: 03/27/2018. Patient signed AGAINST MEDICAL ADVICE REASON FOR ADMISSION: 51 years old male with history of polysubstance abuse, chronic kidney disease, hypertension, presented to emergency room for evaluation. Patient with known history of polysubstance abuse , consisting of alcohol dependency, marijuana use and dependence on narcotics. Patient was intoxicated on Friday, March 16 , tripped and fell. Left eye started to swell immediately overnight on the next day. Patient did not go to emergency room until 03/26. CT of the head revealed no acute intracranial pathology . CT of the facial bones revealed left inferior orbital floor fracture, depressed by 4 mm ,no evidence of herniation of orbital contents. Depressed medial orbital wall fracture. Chest x-ray revealed no acute cardiopulmonary pathology. Laboratory workup revealed WBC 16.8. Hemoglobin 6.6, hematocrit 21.8. BUN 21, creatinine 2.6. Troponin negative. Urine toxicology screen was negative. Serum alcohol level less than 5. Vital signs reveal tachycardia . EKG revealed sinus tachycardia , no acute ischemic changes. Patient admitted with diagnosis of anemia, left orbital wall and floor fracture, chronic kidney disease stage IV, alcohol dependency and narcotic dependency CONSULTANTS: GI specialist ENT specialist Dr. Andrade [facility] COURSE: Patient was admitted. Patient was transfused with two units of packed red blood cells. GI consult was requested. Patient subsequently undergone upper endoscopy with biopsy with findings of gastritis and esophagitis. Biopsy results still pending. GI specialist started patient on PPI . GI specialist recommended reflux measures, monitor for alcohol withdrawal symptoms and follow-up with the biopsy results. DVT prophylaxis provided . Patient was advised on cessation from alcohol . Patient started on folic acid and thiamine to avoid Wernick course and Ativan was on board as needed. Patient was started on IV hydration . Renal parameters and electrolytes were closely monitored, electrolytes corrected as needed ( potassium), nephrotoxins were avoided. Renal ultrasound was ordered. Creatinine down to 1.2 the next day. ENT consult was requested for evaluation of left orbital fracture. ENT surgeon seen and evaluated the patient; patient was able to move eyes in all directions. Injury was on March 16 as per patient , therefore he was not a candidate for repair at this time. Patient denied change in vision or blurry vision, however it may change as swelling goes down. ENT specialist recommended to reconsult as needed. He also suggested ophthalmology evaluation to test vision. Next day hemoglobin up to 7.4 ,hematocrit 23.6 after 2 units of packed red blood cell. Vital signs stable: pulse oximetry stable on room air, tachycardia resolved. Creatinine down to 1.2. Patient decided to sign AGAINST MEDICAL ADVICE.The risks and consequences of signing AGAINST MEDICAL ADVICE were discussed with patient in detail. Patient verbalized understanding, nevertheless signed AMA form and left. FINAL DIAGNOSES: Anemia Gastritis Esophagitis Orbital wall fracture Orbital floor fracture Chronic kidney disease Hypokalemia Alcohol dependency Narcotic dependency I have been assigned to dictate discharge summary for this account. I was not involved in the patient's management. Farideh Lewis NP Mar 30, 2018 13:45
== END 2018-03-27 19:05 | disposition left against medical advice (07) | DRG 253 ==
LOC: EDBD 22:23 → EMR 22:42 → 2E 03-27 02:54 → EDBEDREQ 03-27 02:59 → 2E 03-27 07:01
PROC: 30233N1 Transfusion of Nonautologous Red Blood Cells into Peripheral Vein, Percutaneous Approach (ICD-10-PCS; 2018-03-27)
PROC: 0DB78ZX Excision of Stomach, Pylorus, Via Natural or Artificial Opening Endoscopic, Diagnostic (ICD-10-PCS; principal; 2018-03-27 13:10)
DX: K92.2 Gastrointestinal hemorrhage, unspecified (principal); N18.4 Chronic kidney disease, stage 4 (severe); F11.20 Opioid dependence, uncomplicated; F10.20 Alcohol dependence, uncomplicated; I12.9 Hypertensive chronic kidney disease with stage 1 through stage 4 chronic kidney disease, or unspecified chronic kidney disease; D50.0 Iron deficiency anemia secondary to blood loss (chronic); D64.9 Anemia, unspecified; S02.82XA Fracture of other specified skull and facial bones, left side, initial encounter for closed fracture; K20.9 Esophagitis, unspecified; K29.70 Gastritis, unspecified, without bleeding; W19.XXXA Unspecified fall, initial encounter; E87.6 Hypokalemia; F19.10 Other psychoactive substance abuse, uncomplicated; G89.29 Other chronic pain
CPT/HCPCS: 36415; 70450; 70486; 71045; 80048; 80053; 80307; 80329; 84484; 85007; 85025; 85610; 85730; 86850; 86900; 86901; 86920; 93005; 99291; J2250

== ENCOUNTER 2018-05-02 20:43 | Emergency (ER) | payer MEDICAID ==
[~2018-05-02] VITALS: Ht 190.5 cm; Wt 108.9 kg
[~2018-05-02 20:43] MED LIST: ADALAT20 MG ORAL; ANTIFUNGAL30 G2; BACITRACIN15 GM TOPIC; DICLOFENAC SODI50 MG ORAL; DICLOFENAC SODI75 MG PO; FERROUS SULFAT325 M2 ORAL; FUROSEMIDE20 M1 ORAL; GABAPENTIN600 MG ORAL; GABAPENTIN600 MG PO; K-TAB ER20 MEQ PO; NYSTATIN15 GM TOPIC; VITAMIN D250000 UNI1 ORAL; VITAMIN D250000 UNI1 PO
[2018-05-02 20:50] VITALS: BP 112/74
[2018-05-02] MEDS ORDERED: Pantoprazole Inj IVP ONE (21:00)
[2018-05-02] MEDS ORDERED: chlordiazePOXIDE 25mg Cap ORAL ONE (21:00)
--- NOTE | 2018-05-02 21:02 | Emergency Room Report ---
History of Present Illness General Chief Complaint: Vomiting Source: Patient, Medical Record, EMS Present Illness HPI This is a 52-year-old male with history of alcohol abuse and dependency. He was admitted about 3 weeks ago for severe anemia requiring 2 units of blood. Endoscopy showed severe gastritis but negative for H. pylori. He sat out AMA. He present today via EMS for vomiting and Emnon seizure. He said his niece called 911 because he was shaking. He had incontinence of his urine. He then had vomiting. Patient said he felt better now. Last drink was shot of whiskey at 3 PM. He said he has some beer a days ago. He admits to ending the shakes when he stopped drinking. Denies any black stool. Denies any amount of emesis. No pain. Allergies: Coded Allergies: No Known Allergies (Unverified , 08/22/17) Patient History Past Medical History: see triage record, old chart reviewed Past Surgical History: other Pertinent Family History: none Social History: Reports: alcohol use Immunizations: other Reviewed Nursing Documentation: PMH: Agreed; PSxH: Agreed Nursing Documentation-PMH Hx Hypertension: Yes Review of Systems Eye: Denies: eye pain, blurred vision ENT: Denies: ear pain, nose congestion, throat swelling Respiratory: Denies: cough, shortness of breath Cardiovascular: Denies: chest pain, palpitations Gastrointestinal: Reports: nausea, vomiting; Denies: abdominal pain, diarrhea Musculoskeletal: Denies: back pain, joint pain Skin: Denies: rash Neurological: Denies: headache, numbness Endocrine: Denies: increased thirst, increased urine Hematologic/Lymphatic: Denies: easy bruising All Other Systems: negative except mentioned in HPI Physical Exam Vital Signs Date Time Temp Pulse Resp B/P (MAP) Pulse Ox O2 Delivery O2 Flow Rate FiO2 05/02/18 20:38 97.6 96 18 112/74 98 Room Air 97.5 vitals normal Sp02 EP Interpretation: reviewed, normal General Appearance: well appearing, no apparent distress, alert Head: normocephalic, other - small hematoma the left forehead. Questionable chronicity Eyes: bilateral eye PERRL, bilateral eye EOMI ENT: hearing grossly normal, normal pharynx, other - small swelling to the left upper lip Neck: full range of motion, supple, no meningismus Respiratory: chest non-tender, lungs clear, normal breath sounds Cardiovascular #1: regular rate, rhythm, no murmur Gastrointestinal: normal bowel sounds, non tender, no mass, no organomegaly, no bruit, non-distended Musculoskeletal: back normal, gait/station normal, normal range of motion Psychiatric: mood/affect normal Skin: warm/dry Medical Decision Making Diagnostic Impression: Primary Impression: Alcohol withdrawal seizure Qualified Codes: F10.230 - Alcohol dependence with withdrawal, uncomplicated Additional Impressions: NERIS (acute kidney injury) Head injury, acute Qualified Codes: S09.90XA - Unspecified injury of head, initial encounter Anemia Qualified Codes: D64.9 - Anemia, unspecified ER Course Patient presents with symptoms consistent with seizure from alcohol withdrawal. He is a heavy drinker and hasn't had any drink for 3 days except for one shot of whiskey at 3 PM. He does have some or trauma lip abrasion. Also with incontinence of his urine. No evidence of delirium. He's felt better now after Librium. We'll discharge home. Lab Results Impression labs unremarkable CT/MRI/US Diagnostic Results CT/MRI/US Diagnostic Results : Imaging Test Ordered: CT head Impression read by radiologist. Negative. Last Vital Signs Date Time Temp Pulse Resp B/P (MAP) Pulse Ox O2 Delivery O2 Flow Rate FiO2 05/02/18 20:50 97.5 96 18 112/74 98 Room Air 97.5 Status: improved Disposition: HOME, SELF-CARE Condition: Stable Scripts Chlordiazepoxide (Chlordiazepoxide HCl) 25 Mg Capsule 25 MG ORAL THREE TIMES A DAY, #21 CAP 0 Refills Prov: PACO ROQUE M.D. 05/02/18 Additional Instructions: Stop drinking alcohol. Go to rehabilitation. Follow-up your doctor in 2 to 3 days for recheck. Return if worse. PACO ROQUE M.D. May 02, 2018 21:02
[2018-05-02 21:31] LABS: ANION GAP 15 mmol/L (5-15); BLOOD UREA NITROGEN 8 mg/dL (7-18); CALCIUM 9.3 MG/DL (8.5-10.1); CARBON DIOXIDE 25 MMOL/L (21-32); CHLORIDE 98 MMOL/L (98-107); CREATININE 1.9 MG/DL (0.55-1.30); POTASSIUM 3.6 MMOL/L (3.5-5.1); SODIUM 138 MMOL/L (136-145)
[2018-05-02 21:37] LABS: ALANINE AMINOTRANSFERASE 34 U/L (12-78); ALBUMIN/GLOBULIN RATIO 0.7 (1.0-2.7); ALKALINE PHOSPHATASE 88 U/L (46-116); ASPARTATE AMINO TRANSFERASE 44 U/L (15-37); BILIRUBIN,TOTAL 0.5 MG/DL (0.2-1.0)
[2018-05-02 21:38] LABS: BASOPHILS % (AUTO) 0.6 % (0.0-2.0); EOSINOPHILS % (AUTO) 0.3 % (0.0-3.0); HEMATOCRIT 36.9 % (42.0-52.0); HEMOGLOBIN 11.2 G/DL (14.2-18.0); LYMPHOCYTES % (AUTO) 7.3 % (20.0-45.0); MEAN CORPUSCULAR VOLUME 82 FL (80-99); MONOCYTES % (AUTO) 7.4 % (1.0-10.0); NEUTROPHILS % (AUTO) 84.5 % (45.0-75.0); PLATELET COUNT 155 K/UL (150-450); RED BLOOD COUNT 4.52 M/UL (4.70-6.10); RED CELL DISTRIBUTION WIDTH 16.4 % (11.6-14.8); WHITE BLOOD COUNT 8.5 K/UL (4.8-10.8)
--- NOTE | 2018-05-02 22:15 | Diagnostic Imaging Report ---
EXAM: CT Head Without Intravenous Contrast CLINICAL HISTORY: FALL TECHNIQUE: Axial computed tomography images of the head/brain without intravenous contrast. CTDI is 70.38 + 0.15 + 0.15 mGy and DLP is 1382 mGy-cm. One or more of the following dose reduction techniques were used: automated exposure control, adjustment of the mA and/or kV according to patient size, use of iterative reconstruction technique. COMPARISON: No relevant prior studies available. FINDINGS: Brain: No hemorrhage. No edema. Involutional changes. Ventricles: No ventriculomegaly. Bones/joints: No acute fracture. Soft tissues: Unremarkable. Sinuses: No acute sinusitis. Mastoid air cells: No mastoid effusion. IMPRESSION: No intracranial hemorrhage or skull fracture.
[2018-05-02 23:09] LABS: APPEARANCE,URINE SLIGHTLY CLOUDY; BILIRUBIN, URINE NEGATIVE (NEGATIVE); COLOR,URINE AMBER; GLUCOSE, URINE (UA) NEGATIVE (NEGATIVE); KETONES,URINE NEGATIVE (NEGATIVE); LEUKOCYTE ESTERASE ,URINE NEGATIVE (NEGATIVE); NITRITE,URINE NEGATIVE (NEGATIVE); PH,URINE 8 (4.5-8.0); PROTEIN,URINE 2+ (NEGATIVE); UROBILINOGEN,URINE NORMAL MG/DL (0.0-1.0)
[2018-05-02] MEDS ORDERED: LIBRIUM25 MG ORAL (23:46)
[2018-05-03] VITALS: BP 128/89
== END 2018-05-03 | disposition home or self-care (01) ==
LOC: EDBD 20:43 → EMR 21:03
DX: F10.239 Alcohol dependence with withdrawal, unspecified (principal); R56.9 Unspecified convulsions; N17.9 Acute kidney failure, unspecified; S00.83XA Contusion of other part of head, initial encounter; X58.XXXA Exposure to other specified factors, initial encounter; Y92.9 Unspecified place or not applicable; D64.9 Anemia, unspecified; I10 Essential (primary) hypertension
CPT/HCPCS: 36415; 70450; 80053; 80329; 81003; 83690; 85025; 96361; 96374; 96375; 99284; C9113; J2405

== ENCOUNTER 2018-09-22 17:27 | Emergency (ER) | payer MEDICAID ==
[~2018-09-22] VITALS: Ht 188 cm; Wt 115.7 kg
[~2018-09-22 17:27] MED LIST changes: +LIBRIUM25 MG ORAL
--- NOTE | 2018-09-22 17:42 | Emergency Room Report ---
History of Present Illness General Chief Complaint: Pain Source: Patient Present Illness HPI 53-year-old male patient presents the ER brought in by ambulance complaining of right foot lesion and swelling. Reports is been present for 2 weeks. Reports swelling is been present for 2 weeks. Denies acute injury or trauma. Reports that "I think my shoes are too small" denies history of diabetes. Reports history of hypertension and "enlarged heart". Denies calf pain. Denies fever, chest pain, shortness of breath, vomiting. Patient states he has been drinking alcohol. Denies hx of diabetes. Patient is a poor historian, states may have "had cancer" in his foot. Patient states able to ambulate independently, observed walking in the ER. Allergies: Coded Allergies: No Known Allergies (Unverified , 08/22/17) Patient History Past Medical History: see triage record Reviewed Nursing Documentation: PMH: Agreed; PSxH: Agreed Nursing Documentation-PM Past Medical History: No History, Except For Hx Cardiac Problems: Yes - ENLARGED HEART Hx Hypertension: Yes Review of Systems All Other Systems: negative except mentioned in HPI Physical Exam Vital Signs Date Time Temp Pulse Resp B/P (MAP) Pulse Ox O2 Delivery O2 Flow Rate FiO2 09/22/18 17:19 98.1 90 16 146/90 99 Room Air Sp02 EP Interpretation: reviewed, normal General Appearance: well appearing, no apparent distress, alert, GCS 15, non- toxic Head: normocephalic, atraumatic Eyes: bilateral eye normal inspection, bilateral eye PERRL ENT: hearing grossly normal, normal pharynx, no angioedema, normal voice, uvula midline, moist mucus membranes Neck: full range of motion Respiratory: lungs clear, normal breath sounds, no rhonchi, no respiratory distress, no accessory muscle use, no wheezing, speaking full sentences Cardiovascular #1: regular rate, rhythm Cardiovascular #2: 2+ dorsalis pedis (R), 2+ dorsalis pedis (L) Musculoskeletal: back normal, digits/nails normal, gait/station normal, normal range of motion, non-tender, other - NVI, cap refill less than 2 seconds Neurologic: alert, oriented x3, responsive, motor strength/tone normal, sensory intact Psychiatric: mood/affect normal Skin: other - 2 cm ulcer on right foot near first digit MTP joint, surrounding edema, no surrounding erythema, no tenderness to palpation, no warmth to touch, no crepitus, no bleeding or active drainage, no palpable mass Medical Decision Making PA Attestation Dr. Karimi is my supervising Physician whom patient management has been discussed with. Diagnostic Impression: Primary Impression: Osteomyelitis Additional Impressions: Anemia Foot infection ER Course Pt. presents to the ED c/o right foot lesion and swelling. Ddx considered but are not limited to DVT, CHF complication, peripheral edema, cellulitis, sprain, strain, osteomyelitis, necrosis, gangrene. Vital signs: are WNL, pt. is afebrile ER COURSE: Patient foot wound clean and dressed, bacitracin applied. CBC elevation WBCs, anemia noted, does not require transfusion at this time. ESR elevated CMP shows elevated alk phos and total protein Xray of right foot shows Extensive soft tissue swelling identified about the medial forefoot centered about region of first metatarsal-phalangeal joint. Probable soft tissue ulceration along medial forefoot.Severe arthritic changes involve the first metatarsal-phalangeal joint with bony erosive changes as well as osteolytic bony destruction involving the first metatarsal head and base of first proximal phalanx. Associated periosteal reaction. Findings suggest septic arthritis and osteomyelitis. Deformity involving second metatarsal head most suggestive of posttraumatic deformity with mild degenerative changes about the second metatarsophalangeal joint. Via [employer]. Provided patient with IV vancomycin. US negative for DVT. Discussed patient care with Dr. Karimi, patient will be admitted. Dr. Karimi spoke with Dr. Bourne who will accept patient at [facility]. - Please note that this Emergency Department Report was dictated using [employer] chief technology software, occasionally this can lead to erroneous entry secondary to interpretation by the dictation equipment. Labs Test 09/22/18 19:50 White Blood Count 5.0 K/UL (4.8-10.8) Red Blood Count 3.37 M/UL (4.70-6.10) Hemoglobin 8.5 G/DL (14.2-18.0) Hematocrit 28.2 % (42.0-52.0) Mean Corpuscular Volume 84 FL (80-99) Mean Corpuscular Hemoglobin 25.2 PG (27.0-31.0) Mean Corpuscular Hemoglobin Concent 30.0 G/DL (32.0-36.0) Red Cell Distribution Width 16.0 % (11.6-14.8) Platelet Count 191 K/UL (150-450) Mean Platelet Volume 5.5 FL (6.5-10.1) Neutrophils (%) (Auto) 63.5 % (45.0-75.0) Lymphocytes (%) (Auto) 28.4 % (20.0-45.0) Monocytes (%) (Auto) 5.4 % (1.0-10.0) Eosinophils (%) (Auto) 1.6 % (0.0-3.0) Basophils (%) (Auto) 1.1 % (0.0-2.0) Erythrocyte Sedimentation Rate 96 MM/HR (0-20) Sodium Level 145 MMOL/L (136-145) Potassium Level 3.7 MMOL/L (3.5-5.1) Chloride Level 104 MMOL/L (98-107) Carbon Dioxide Level 30 MMOL/L (21-32) Anion Gap 11 mmol/L (5-15) Blood Urea Nitrogen 4 mg/dL (7-18) Creatinine 0.8 MG/DL (0.55-1.30) Estimat Glomerular Filtration Rate > 60 mL/min (>60) Glucose Level 92 MG/DL (74-106) Calcium Level 8.8 MG/DL (8.5-10.1) Total Bilirubin 0.2 MG/DL (0.2-1.0) Aspartate Amino Transf (AST/SGOT) 33 U/L (15-37) Alanine Aminotransferase (ALT/SGPT) 18 U/L (12-78) Alkaline Phosphatase 117 U/L (46-116) Total Protein 10.9 G/DL (6.4-8.2) Albumin 2.8 G/DL (3.4-5.0) Globulin 8.1 g/dL Albumin/Globulin Ratio 0.3 (1.0-2.7) Other X-Ray Diagnostic Results Other X-Ray Diagnostic Results : X-Ray ordered: Right foot # of Views/Limited Vs Complete: 3 View Indication: Pain EP Interpretation: Yes PA Xray: Interpretation reviewed, by supervising MD, and agrees with findings. Interpretation: no dislocation, other - soft tissue changes, osteolytic defomirty and bony changes Impression: Other - septic arthritis and osteomyelitis BECCA Scribe Text Gonzalo Mayo PA-C CT/MRI/US Diagnostic Results CT/MRI/US Diagnostic Results : Imaging Test Ordered: Right lower extremity venous duplex ultrasound Impression Negative for DVT per sterile preparation technician Last Vital Signs Date Time Temp Pulse Resp B/P (MAP) Pulse Ox O2 Delivery O2 Flow Rate FiO2 09/22/18 17:19 98.1 90 16 146/90 99 Room Air Disposition: [facility] Condition: Serious Handy Mayo Sep 22, 2018 17:42
[2018-09-22] MEDS ORDERED: Bacitracin Oint UD TOPIC ONE (18:00)
[2018-09-22 18:42] VITALS: BP 146/90
[2018-09-22] MEDS ORDERED: Vancomycin 1 GM in NS 275 ML IVPB ONE (19:30)
[2018-09-22 20:03] LABS: BASOPHILS % (AUTO) 1.1 % (0.0-2.0); EOSINOPHILS % (AUTO) 1.6 % (0.0-3.0); HEMATOCRIT 28.2 % (42.0-52.0); HEMOGLOBIN 8.5 G/DL (14.2-18.0); LYMPHOCYTES % (AUTO) 28.4 % (20.0-45.0); MEAN CORPUSCULAR VOLUME 84 FL (80-99); MONOCYTES % (AUTO) 5.4 % (1.0-10.0); NEUTROPHILS % (AUTO) 63.5 % (45.0-75.0); PLATELET COUNT 191 K/UL (150-450); RED BLOOD COUNT 3.37 M/UL (4.70-6.10)
[2018-09-22 20:24] LABS: ANION GAP 11 mmol/L (5-15); BLOOD UREA NITROGEN 4 mg/dL (7-18); CALCIUM 8.8 MG/DL (8.5-10.1); CARBON DIOXIDE 30 MMOL/L (21-32); CHLORIDE 104 MMOL/L (98-107); CREATININE 0.8 MG/DL (0.55-1.30); POTASSIUM 3.7 MMOL/L (3.5-5.1); SODIUM 145 MMOL/L (136-145)
[2018-09-22 20:29] LABS: ALANINE AMINOTRANSFERASE 18 U/L (12-78); ALBUMIN 2.8 G/DL (3.4-5.0); ALBUMIN/GLOBULIN RATIO 0.3 (1.0-2.7); ALKALINE PHOSPHATASE 117 U/L (46-116); ASPARTATE AMINO TRANSFERASE 33 U/L (15-37); BILIRUBIN,TOTAL 0.2 MG/DL (0.2-1.0)
[2018-09-22 21:39] VITALS: BP 141/90
[2018-09-22] MEDS ORDERED: Norco 5mg/325mg tab ORAL ONE (23:00)
[2018-09-22 23:07] VITALS: BP 171/85
--- NOTE | 2018-09-23 12:28 | Diagnostic Imaging Report ---
Indication: Foot pain, swelling Technique: 3 views right foot Comparison: none Findings: There is marked destructive change involving the first metatarsal distally. There is destructive change and pathologic fracture involving the first proximal phalanx. There is extensive swelling of the first digit. There is suggestion of a soft tissue ulcer medially. There is periosteal reaction along the shaft of the second metatarsal, as well as some indistinctness of the margins of the second metatarsal head. There is also some indistinctness of the second proximal phalangeal base and some periosteal reaction along the second proximal phalanx. There is marked deformity of the second metatarsal head, probably on the basis of chronic degenerative change and posttraumatic deformity. The remaining digits are unremarkable. Impression: Findings consistent with osteomyelitis of the first metatarsal and first proximal phalanx, with pathologic fracture of the latter Findings suspicious for osteomyelitis of the second metatarsal and second proximal phalanx Degenerative and likely posttraumatic deformity of the second metatarsal head Soft tissue swelling, likely cellulitis, with likely soft tissue ulcer medial to the first metatarsal head This agrees with the preliminary interpretation provided overnight by [facility] teleradiology service, with minor variation.
--- NOTE | 2018-09-23 12:30 | Diagnostic Imaging Report ---
Indication: Right leg pain and swelling Technique: Grayscale and duplex images of the right lower extremity veins Comparison: none Findings: Grayscale and duplex images demonstrate no evidence of intraluminal thrombus. Normal phasic Doppler waveforms, demonstrating normal augmentation response and no evidence of valvular insufficiency. Normal compressibility of all deep veins Impression: Negative for right lower extremity deep vein thrombosis
== END 2018-09-22 23:00 | disposition short-term general hospital (02) ==
LOC: EDBD 17:27 → EMR 18:55
DX: M86.8X7 Other osteomyelitis, ankle and foot (principal); D64.9 Anemia, unspecified; I10 Essential (primary) hypertension
CPT/HCPCS: 36415; 73630; 80053; 85025; 85651; 93971; 96365; 99285; J3370; J7050